=== PATIENT | male | born 1930 | race Caucasian/White ===

== ENCOUNTER 2019-01-12 10:05 | Inpatient (IN) | payer MEDICARE ==
[~2019-01-12] VITALS: Ht 165.1 cm; Wt 83.0 kg
[2019-01-12] MEDS ORDERED: ALBUTEROL FS 2.5 MG/3 ML VIAL.NEB NEB ONE (10:30)
[2019-01-12] MEDS ORDERED: IPRATROPIUM NEB FS 0.5 MG/2.5 ML AMPUL.NEB NEB ONE (10:30)
--- NOTE | 2019-01-12 10:32 | NUR ---
Patient presented to the ER c/o SOB/cough x 1 week. On room air, breathing evenly and unlabored. Connected to the monitor and pulse ox. Kept comfortable, will continue to monitor accordingly.
[2019-01-12] MEDS ORDERED: ALBUTEROL FS 2.5 MG/3 ML VIAL.NEB ONE (10:33)
[2019-01-12] MEDS ORDERED: IPRATROPIUM NEB FS 0.5 MG/2.5 ML AMPUL.NEB ONE (10:33)
[2019-01-12 10:41] LABS: BASOPHILS % (AUTO) 0.3 % (0.0-2.0); HEMATOCRIT 43 % (39-51); HEMOGLOBIN 14.1 g/dL (13.5-17.5); LYMPHOCYTES % (AUTO) 10.9 % (20.0-44.0); MEAN CORPUSCULAR HGB CONC 33 g/dl (31.0-36.0); MEAN CORPUSCULAR VOLUME 90 fL (80-96); MONOCYTES # (AUTO) 0.7 /CMM (0.1-1.30); MONOCYTES % (AUTO) 7.5 % (2.0-12.0); NEUTROPHILS # (AUTO) 7.1 /CMM (1.8-8.9); NEUTROPHILS % (AUTO) 80.3 % (43.0-81.0); PLATELET COUNT (AUTO) 186 /CMM (150-450); RED BLOOD CELL COUNT(AUTO) 4.74 MIL/uL (4.5-6.0); WHITE BLOOD COUNT (AUTO) 8.9 K/uL (4.3-11.0)
[2019-01-12 10:52] LABS: CALCIUM, SERUM 8.7 mg/dL (8.5-10.1); CARBON DIOXIDE 27 mmol/L (21-32); CHLORIDE 109 mmol/L (98-107); CREATININE 1.3 mg/dL (0.6-1.3); GLUCOSE 128 mg/dL (74-106); POTASSIUM 4.1 mmol/L (3.5-5.1); SODIUM SERUM 144 mmol/L (136-145); UREA NITROGEN, BLOOD 16 mg/dL (7-18)
--- NOTE | 2019-01-12 11:43 | NUR ---
CALLED NURSING SUP FOR TELE BED
[2019-01-12] MEDS ORDERED: CEFTRIAXONE 1GM BAG (ER ONLY) 50 ML IV ONE ×2 (11:53→12:00)
--- NOTE | 2019-01-12 11:53 | NUR ---
[id number] TELE DX PNEUMONIA NASIR FISHER NP ACCEPTING
[2019-01-12] MEDS ORDERED: AZITHROMYCIN 500 MG in IV D5W 250 ML IV ONE (12:00)
--- NOTE | 2019-01-12 12:11 | NUR ---
report given to Chapin HELLER for ERICH.
[2019-01-12] MEDS ORDERED: IV NS 0.9% 1,000 ML BAG IV ONE (12:30)
[2019-01-12] MEDS ORDERED: AMLO5TAB9 PO (13:04)
[2019-01-12] MEDS ORDERED: LEVE500T20 PO (13:04)
[2019-01-12] MEDS ORDERED: LISI40TA4 PO (13:04)
--- NOTE | 2019-01-12 13:05 | NUR ---
TECHNICAL SUPPORT ANALYST NOTES PATIENT ARRIVED BY WHEELCHAIR. AMBULATORY. ALERT AND ORIENTED X 3, VERBALLY RESPONSIVE AND RESPONDS TO VERBAL AND TACTILE STIMULI. NO ACUTE DISTRESS NOTED. DENIES ANY PAIN OR DISCOMFORT NOTED. PATIENT ADMITTED TO UNIT UNDER MEDICAL SUPERVISION OF NASIR FISHER NP, AWARE OF PATIENT ARRIVAL. PATIENT ORIENTED TO UNIT, STAFF, PLAN OF CARE AND VERBALIZED UNDERSTANDING. WILL CONTINUE TO MONITOR. BED LOCKED AND IN LOW POSITION. BILATERAL UPPER SIDE RAILS UP AND LOCKED. CALL LIGHT WITHIN EASY REACH
--- NOTE | 2019-01-12 13:08 | NUR ---
patient wheeled via gurney accompanied by emt and RN in no apparent distress noted.
--- NOTE | 2019-01-12 14:15 | NUR ---
WASTE RECLAIMER NOTES PATIENT ON TELEMETRY, ELECTRON MICROSCOPIST IN PLACE. NOTED WITH 4-BEAT VENTRICULAR RUN WITH COUPLETS, RATE OF 80 BPM. NASIR FISHER CLAY TEMPERER PRESENT AT UNIT MADE AWARE, ALSO MADE AWARE OF EKG RESULT FROM ER. WITH NEW ORDER FOR MAGNESIUM LEVEL, NO FURTHER ORDERS AT THIS TIME. ORDER NOTED AND CARRIED OUT. LAB MADE AWARE. WILL CONTINUE TO MONITOR
[2019-01-12] MEDS ORDERED: ONDANSETRON HCL/PF 4 MG/2 ML VIAL IVP PRN (14:30)
[2019-01-12] MEDS ORDERED: IPRATROPIUM NEB FS 0.5 MG/2.5 ML AMPUL.NEB NEB PRN (14:30)
[2019-01-12] MEDS ORDERED: MAGNESIUM HYDROXIDE 30 ML UDC PO PRN (14:30)
[2019-01-12] MEDS ORDERED: ALBUTEROL FS 2.5 MG/0.5 ML VIAL.NEB NEB PRN (14:30)
[2019-01-12] MEDS ORDERED: HYDROCODONE/APAP 5/325MG 1 EACH TABLET PO PRN (14:30)
[2019-01-12] MEDS ORDERED: ZOLPIDEM TARTRATE 5 MG TABLET PO PRN (14:30)
[2019-01-12] MEDS ORDERED: Z GUARD REMEDY 2 OZ OINT TP PRN (14:30)
[2019-01-12] MEDS ORDERED: ACETAMINOPHEN 325 MG TABLET PO PRN (14:30)
[2019-01-12 14:40] LABS: BILIRUBIN,DIRECT 0.1 mg/dL (0.0-0.2); BILIRUBIN,TOTAL 0.4 mg/dL (0.2-1.0)
[2019-01-12] MEDS: ACETYLCYSTEINE 10% SOLN 400 MG/4 ML VIAL NEB SCH ×2 (15:32→22:51)
[2019-01-12] MEDS: IPRATROPIUM NEB FS 0.5 MG/2.5 ML AMPUL.NEB NEB SCH ×3 (15:32→22:51)
[2019-01-12] MEDS: ALBUTEROL FS 2.5 MG/0.5 ML VIAL.NEB NEB SCH ×3 (15:32→22:51)
[2019-01-12] MEDS: methylPREDNISolone SOD SUCC 125 MG/2ML VIAL IV SCH ×2 (15:35→21:45)
[2019-01-12 16:00] VITALS: BP 171/86
--- NOTE | 2019-01-12 18:22 | NUR ---
FRONT END ASSISTANT NOTES PATIENT RESTING INSIDE ROOM. AWAKE, ALERT AND ORIENTED X 3, HARD OF HEARING. NO ACUTE DISTRESS, DENIES ANY PAIN OR DISCOMFORT AT THIS TIME. PATIENT KEPT CLEAN, DRY AND COMFORTABLE. CONTINUE WITH TELEMETRY, MEAT CLERK IN PLACE. SR WITH PVCs 85 BPM. WILL ENDORSE TO INCOMING SHIFT FOR ERICH. BED LOCKED AND IN LOW POSITION. BILATERAL UPPER SIDE RAILS UP AND LOCKED. CALL LIGHT WITHIN EASY REACH
--- NOTE | 2019-01-12 19:30 | NUR ---
TELE/RN RECEIVE PATIENT AWAKE, ALERT, ORIENTED, COMFORTABLE, NO C/O PAIN, NO DISTRESS NOTED, CALL LIGHT IN REACH. FALL RISK PRECAUTIONS PER PROTOCOL. WILL MONITOR.
[2019-01-12] MEDS ORDERED: VANCOMYCIN 1.25 GM in IV D5W 500 ML IV ONE (20:00)
[2019-01-12] MEDS ORDERED: FEE PK DOSING 1 MIN EA MC ONE (20:02)
[2019-01-12 20:05] VITALS: BP 139/90
[2019-01-12] MEDS: ENOXAPARIN SODIUM 40 MG/0.4 ML DISP.SYRIN SQ SCH (21:25)
[2019-01-12] MEDS: LEVETIRACETAM (250 MG) 250 MG TABLET PO SCH (21:46)
[2019-01-13] VITALS (7 sets, daily range): BP systolic 128–159; BP diastolic 68–80
--- NOTE | 2019-01-13 02:24 | NUR ---
TELE/RN PATIENT IS SLEEPING, AROUSABLE, APPEAR COMFORTABLE, NO SIGNS OF DISTRESS NOTED, CALL LIGHT IN REACH. WILL CONTINUE TO MONITOR.
[2019-01-13] MEDS: ALBUTEROL FS 2.5 MG/0.5 ML VIAL.NEB NEB SCH ×4 (02:53→14:45)
[2019-01-13] MEDS: IPRATROPIUM NEB FS 0.5 MG/2.5 ML AMPUL.NEB NEB SCH ×6 (02:53→23:25)
[2019-01-13] MEDS: methylPREDNISolone SOD SUCC 125 MG/2ML VIAL IV SCH ×3 (05:12→21:06)
--- NOTE | 2019-01-13 06:22 | NUR ---
TELE/RN PATIENT IS AWAKE, ALERT, WATCHING TV, NO CHANGE IN CONDITION. ALL NEEDS ATTENDED AT THIS TIME, WILL CONTINUE TO MONITOR.
[2019-01-13 06:33] LABS: BASOPHILS % (AUTO) 0.1 % (0.0-2.0); HEMATOCRIT 40 % (39-51); HEMOGLOBIN 13.7 g/dL (13.5-17.5); LYMPHOCYTES # (AUTO) 0.6 /CMM (0.8-4.8); LYMPHOCYTES % (AUTO) 6.6 % (20.0-44.0); MEAN CORPUSCULAR HGB CONC 34 g/dl (31.0-36.0); MEAN CORPUSCULAR VOLUME 88 fL (80-96); MONOCYTES # (AUTO) 0.3 /CMM (0.1-1.30); MONOCYTES % (AUTO) 2.9 % (2.0-12.0); NEUTROPHILS # (AUTO) 8.1 /CMM (1.8-8.9); NEUTROPHILS % (AUTO) 90.4 % (43.0-81.0); PLATELET COUNT (AUTO) 175 /CMM (150-450); RED BLOOD CELL COUNT(AUTO) 4.57 MIL/uL (4.5-6.0); WHITE BLOOD COUNT (AUTO) 8.9 K/uL (4.3-11.0)
[2019-01-13 06:43] LABS: CHOLESTEROL 94 mg/dL (<200); HDL CHOLESTEROL 29 mg/dL (40-60); LDL 60 mg/dL (0-99); TRIGLYCERIDES 63 mg/dL (30-150)
[2019-01-13 06:50] LABS: CALCIUM, SERUM 8.7 mg/dL (8.5-10.1); CARBON DIOXIDE 24 mmol/L (21-32); CHLORIDE 104 mmol/L (98-107); GLUCOSE 198 mg/dL (74-106); MAGNESIUM 2.1 mg/dL (1.8-2.4); PHOSPHORUS 2.7 mg/dL (2.5-4.9); POTASSIUM 3.7 mmol/L (3.5-5.1); SODIUM SERUM 139 mmol/L (136-145); UREA NITROGEN, BLOOD 11 mg/dL (7-18)
--- NOTE | 2019-01-13 07:42 | NUR ---
SHIRT TURNER OPENING NOTES RECEIVED PT IN BED, AWAKE, A/O X3. TOLERATING RA, WITH NO ACUTE RESPIRATORY DISTRESS NOTED. PT DENIES PAIN AT THIS MOMENT. PT CONCERNED OF WHEN CAN HE BE DISCHARGE. PT STATING HE FELT A LOT BETTER NOW. PT MADE AWARE OF THE HOSPITALIST'S ROUNDS, WILL UPDATE PT FOR THE PLAN WHEN ASSISTANT PROFESSOR OF DRAMA CC COMES AND EVALUATES HIM. ON TELEMONITORING OCCASIONAL PVCS NOTED WITH HR OF 77. PT KEPT HOB ELEVATED. PT KEPT COMFORTABLE. PT'S BED IN LOWEST, LOCKED POSITION WITH SR X 2. CALL LIGHT AND FLUID KEPT WITHIN REACH. WILL CONTINUE PLAN OF CARE.
[2019-01-13] MEDS: ACETYLCYSTEINE 10% SOLN 400 MG/4 ML VIAL NEB SCH ×3 (08:06→23:25)
[2019-01-13] MEDS: LISINOPRIL (20MG) 20 MG TABLET PO SCH (09:04)
[2019-01-13] MEDS: AMLODIPINE BESYLATE 5 MG TABLET PO SCH (09:04)
[2019-01-13] MEDS: LEVETIRACETAM (250 MG) 250 MG TABLET PO SCH ×2 (09:04→21:07)
--- NOTE | 2019-01-13 09:59 | NUR ---
WOUND CARE CONSULT: PT PRESENTS WITH REDNESS AND SWELLING TO LEFT LOWER LEG, PRESENT ON ADMISSION. PT IS INCONTINENT. RECOMMENDATIONS MADE FOR SKIN PROTECTION. DISCUSSED WITH NURSING STAFF. WILL SEE PRN. LUNA IN AGREEMENT WITH PLAN OF CARE. CURRENT BRIE SCORE IS 19. Addendum: 01/13/19 at 1001 by LISA FRYE WNDNU Amended: Links added.
[2019-01-13] MEDS: CEFTRIAXONE 1 G in IV D5W 50 ML IV SCH (11:55)
[2019-01-13] MEDS: AZITHROMYCIN 250 MG TABLET PO SCH (11:56)
[2019-01-13] MEDS: VANCOMYCIN 1 GM in IV D5W 250 ML IV SCH (13:04)
--- NOTE | 2019-01-13 13:15 | NUR ---
RN NOTES PT HAD STAT EKG, RESULTED SINUS TACH WITH FREQUENT PVCS WITH HR 108. VS 147/75, 98.3, 20 AND 96% AT ROOM AIR. BUSINESS INTELLIGENCE ETL DEVELOPER CC MADE AWARE. WILL CONTINUE TO MONITOR.
[2019-01-13] MEDS ORDERED: METOPROLOL TARTRATE INJ 5 MG/5 ML AMPUL IVP ONE (17:00)
[2019-01-13] MEDS ORDERED: LEVALBUTEROL HCL NEB 1.25 MG/0.5 ML VIAL.NEB NEB PRN (17:00)
[2019-01-13] MEDS: LACTOBACILLUS RHAMNOSUS GG 1 EACH CAP.SPRINK PO SCH (17:20)
[2019-01-13] MEDS: METOPROLOL TARTRATE 50 MG TABLET PO SCH ×2 (17:20→23:16)
--- NOTE | 2019-01-13 18:34 | NUR ---
SIZING END BANDER CLOSING NOTES RECEIVED PT IN BED, AWAKE, A/O X3. TOLERATING RA, WITH NO ACUTE RESPIRATORY DISTRESS NOTED. PT DENIES PAIN AT THIS MOMENT. ON TELEMONITORING SINUS TACH WITH FREQUENT PVCS NOTED WITH HR OF 110. PIV TO RIGHT HAND G20, FLUSHED WITH NS INTACT AND OPERATIONAL. PT KEPT HOB ELEVATED. ALL NEEDS AND CARE PROVIDED.PT KEPT COMFORTABLE. PT'S BED IN LOWEST, LOCKED POSITION WITH SR X 2. CALL LIGHT AND FLUID KEPT WITHIN REACH. WILL ENDORSE PLAN OF CARE TO INCOMING NIGHT NURSE AND CN.
--- NOTE | 2019-01-13 19:50 | NUR ---
TELE/RN RECEIVE PATIENT AWAKE, ALERT, ORIENTED, COMFORTABLE, NO C/O PAIN, NO DISTRESS NOTED, CALL LIGHT IN REACH. FALL PRECAUTIONS PER PROTOCOL IN PLACE, WILL MONITOR.
[2019-01-13] MEDS: ENOXAPARIN SODIUM 40 MG/0.4 ML DISP.SYRIN SQ SCH (21:08)
[2019-01-14] VITALS: BP 155/96
[2019-01-14] MEDS: IPRATROPIUM NEB FS 0.5 MG/2.5 ML AMPUL.NEB NEB SCH ×6 (03:47→23:09)
[2019-01-14 04:00] VITALS: BP 147/89
[2019-01-14] MEDS: METOPROLOL TARTRATE 50 MG TABLET PO SCH ×2 (05:36→09:18)
[2019-01-14] MEDS: methylPREDNISolone SOD SUCC 125 MG/2ML VIAL IV SCH ×3 (05:36→20:41)
--- NOTE | 2019-01-14 06:55 | NUR ---
TELE/RN PATIENT IS SLEEPING AT THIS TIME, EASILY AROUSABLE, APPEAR COMFORTABLE, NO SIGNS OF DISTRESS NOTED, CALL LIGHT IN REACH. ALL NEEDS ATTENDED AT THIS TIME,WILL CONTINUE TO MONITOR.
[2019-01-14 07:01] LABS: BASOPHILS % (AUTO) 0.1 % (0.0-2.0); HEMATOCRIT 41 % (39-51); HEMOGLOBIN 13.9 g/dL (13.5-17.5); LYMPHOCYTES % (AUTO) 6.5 % (20.0-44.0); MEAN CORPUSCULAR HGB CONC 34 g/dl (31.0-36.0); MEAN CORPUSCULAR VOLUME 89 fL (80-96); MONOCYTES # (AUTO) 0.7 /CMM (0.1-1.30); MONOCYTES % (AUTO) 4.7 % (2.0-12.0); NEUTROPHILS # (AUTO) 14.1 /CMM (1.8-8.9); NEUTROPHILS % (AUTO) 88.7 % (43.0-81.0); PLATELET COUNT (AUTO) 217 /CMM (150-450); RED BLOOD CELL COUNT(AUTO) 4.66 MIL/uL (4.5-6.0); WHITE BLOOD COUNT (AUTO) 15.9 K/uL (4.3-11.0)
[2019-01-14 07:20] LABS: CALCIUM, SERUM 9.6 mg/dL (8.5-10.1); CARBON DIOXIDE 28 mmol/L (21-32); CHLORIDE 103 mmol/L (98-107); GLUCOSE 131 mg/dL (74-106); MAGNESIUM 2.2 mg/dL (1.8-2.4); POTASSIUM 4.4 mmol/L (3.5-5.1); SODIUM SERUM 139 mmol/L (136-145); UREA NITROGEN, BLOOD 21 mg/dL (7-18)
[2019-01-14] MEDS: ACETYLCYSTEINE 10% SOLN 400 MG/4 ML VIAL NEB SCH ×3 (07:25→23:08)
--- NOTE | 2019-01-14 07:30 | NUR ---
received pt. alert and oriented x3,but very forgetful.cont. checking on pt. as seems to need reassurance.
[2019-01-14 08:00] VITALS: BP 158/98
[2019-01-14] MEDS: AMLODIPINE BESYLATE 5 MG TABLET PO SCH (09:17)
[2019-01-14] MEDS: LEVETIRACETAM (250 MG) 250 MG TABLET PO SCH ×2 (09:17→20:41)
[2019-01-14] MEDS: LISINOPRIL (20MG) 20 MG TABLET PO SCH (09:18)
[2019-01-14] MEDS: LACTOBACILLUS RHAMNOSUS GG 1 EACH CAP.SPRINK PO SCH ×2 (09:18→19:10)
[2019-01-14 10:01] LABS: THYROID STIMULATING HORMONE 0.38 uIU/mL (0.358-3.74)
[2019-01-14 10:25] VITALS: BP 177/74
[2019-01-14] MEDS: AMIODARONE HCL 200 MG TABLET PO SCH ×3 (10:27→19:10)
[2019-01-14] MEDS: CEFTRIAXONE 1 G in IV D5W 50 ML IV SCH (12:19)
[2019-01-14] MEDS: AZITHROMYCIN 250 MG TABLET PO SCH (12:20)
[2019-01-14] MEDS: VANCOMYCIN 1 GM in IV D5W 250 ML IV SCH (13:08)
[2019-01-14 16:00] VITALS: BP 144/87
--- NOTE | 2019-01-14 16:35 | NUR ---
iv site rt. hand leaking-removed and new iv start lt. wrist #22 angio,tolerated well.
--- NOTE | 2019-01-14 16:36 | NUR ---
attemting to get oob freq.reoeiented.bed alarm on.
--- NOTE | 2019-01-14 19:15 | NUR ---
FOOD SERVICE DRIVER NOTES RECEIVED PT IN BED AWAKE AND ABLE TO MAKE NEEDS KNOWN. PT A/O X3. PT ON RA AND TOLERATING WELL. BREATHING EVEN AND UNLABORED WITH NO S/S OF ACUTE DISTRESS OR SOB NOTED. PT DENIES PAIN AT THIS TIME. PT ON TELEMONITORING WITH SINUS RHYTHM WITH FREQUENT PVCS AND BBB NOTED WITH HR OF 68. PT WITH IV ON LEFT WRIST #20G SL, PATENT AND INTACT. SAFETY MEASURES IN PLACE WITH BED IN LOWEST LOCKED POSITION WITH SIDE RAILS UP X2. CALL LIGHT WITHIN REACH. WILL CONTINUE TO MONITOR.
[2019-01-14 20:00] VITALS: BP 134/70
[2019-01-14] MEDS: ENOXAPARIN SODIUM 40 MG/0.4 ML DISP.SYRIN SQ SCH (20:43)
[2019-01-15] VITALS: BP 166/95
[2019-01-15] MEDS: IPRATROPIUM NEB FS 0.5 MG/2.5 ML AMPUL.NEB NEB SCH ×6 (02:50→23:26)
[2019-01-15] MEDS: methylPREDNISolone SOD SUCC 125 MG/2ML VIAL IV SCH (06:00)
--- NOTE | 2019-01-15 06:40 | NUR ---
JOURNEYMAN CARPENTER NOTES PT IN BED SLEEPING BUT EASILY AWOKEN VERBALLY OR BY TOUCH. PT A/O X3. PT ON RA AND TOLERATING WELL. BREATHING EVEN AND UNLABORED WITH NO S/S OF ACUTE DISTRESS OR SOB NOTED THROUGHOUT SHIFT. PT DENIES PAIN AT THIS TIME. PT ON TELEMONITORING WITH SINUS RHYTHM WITH FREQUENT PVCS AND BBB NOTED WITH HR OF 61. PT KEPT CLEAN, DRY, AND COMFORTABLE. PT WITH IV ON LEFT WRIST #20G SL, PATENT AND INTACT. SAFETY MEASURES IN PLACE WITH BED IN LOWEST LOCKED POSITION WITH SIDE RAILS UP X2. CALL LIGHT WITHIN REACH. WILL ENDORSE TO ONCOMING NURSE FOR ERICH.
[2019-01-15 07:17] LABS: CALCIUM, SERUM 9.4 mg/dL (8.5-10.1); CARBON DIOXIDE 25 mmol/L (21-32); CHLORIDE 104 mmol/L (98-107); GLUCOSE 133 mg/dL (74-106); POTASSIUM 4.3 mmol/L (3.5-5.1); SODIUM SERUM 138 mmol/L (136-145); UREA NITROGEN, BLOOD 30 mg/dL (7-18)
--- NOTE | 2019-01-15 07:20 | NUR ---
QUEEN'S COUNSEL OPENING NOTE RECEIVED PATIENT IN BED. ALERT ORIENTED X3, ZUNI. ON ROOM AIR, TOLERATING WELL. IN NO APPARENT DISTRESS OR DISCOMFORT AT THIS TIME. RESPIRATIONS EVEN AND UNLABORED. DENIES PAIN AND SOB. ON TELE MONITOR WITH SR AND PVCS, HR OF 60. LEFT WRIST 22G IVC SL, PATENT AND INTACT. PATIENT KEPT CLEAN AND COMFORTABLE, SAFETY MEASURES IN PLACE, BED IN LOW LOCKED POSITION, SIDE RAILS UP X2, ALARM ON, CALL LIGHT WITHIN EASY REACH. WILL CONTINUE TO MONITOR.
[2019-01-15] MEDS: ACETYLCYSTEINE 10% SOLN 400 MG/4 ML VIAL NEB SCH ×3 (07:48→23:26)
[2019-01-15 08:00] VITALS: BP 159/89
[2019-01-15] MEDS: AMLODIPINE BESYLATE 5 MG TABLET PO SCH (08:29)
[2019-01-15] MEDS: LACTOBACILLUS RHAMNOSUS GG 1 EACH CAP.SPRINK PO SCH ×2 (08:29→17:30)
[2019-01-15] MEDS: AMIODARONE HCL 200 MG TABLET PO SCH ×3 (08:29→17:31)
[2019-01-15] MEDS: LISINOPRIL (20MG) 20 MG TABLET PO SCH (08:30)
[2019-01-15] MEDS: LEVETIRACETAM (250 MG) 250 MG TABLET PO SCH ×2 (08:33→21:05)
[2019-01-15 09:00] VITALS: BP 159/89
[2019-01-15] MEDS: methylPREDNISolone SOD SUCC 40 MG/ML VIAL IV SCH ×2 (12:14→21:05)
[2019-01-15] MEDS: CEFTRIAXONE 1 G in IV D5W 50 ML IV SCH (12:18)
[2019-01-15] MEDS: AZITHROMYCIN 250 MG TABLET PO SCH (12:18)
[2019-01-15] MEDS: VANCOMYCIN 1 GM in IV D5W 250 ML IV SCH (13:39)
[2019-01-15 16:00] VITALS: BP 156/92
--- NOTE | 2019-01-15 19:20 | NUR ---
MS RN CLOSING NOTE PATIENT IN BED. ALERT ORIENTED X3, EGEGIK. ON ROOM AIR, TOLERATING WELL. IN NO APPARENT DISTRESS OR DISCOMFORT AT THIS TIME. RESPIRATIONS EVEN AND UNLABORED. DENIES PAIN AND SOB. ABLE TO COMMUNICATE NEEDS. LEFT WRIST 22G IVC SL, PATENT AND INTACT. PATIENT KEPT CLEAN AND COMFORTABLE, ALL NEEDS ATTENDED, ORDERS RENDERED. SAFETY MEASURES IN PLACE, BED IN LOW LOCKED POSITION, SIDE RAILS UP X2, ALARM ON, CALL LIGHT WITHIN EASY REACH. SEIZURE PRECAUTIONS OBSERVED, WILL ENDORSE TO PM NURSE FOR ERICH.
--- NOTE | 2019-01-15 19:25 | NUR ---
RN INITIAL NOTES: RECEIVED REPORT FROM JUSTIN HELLER. PT IN BED, AWAKE, A/O X3 ON RA RESPIRATION EVEN AND UNLABORED. PT HARD OF HEARING. DISCUSSED PLAN OF CARE TO PT AT THIS TIME, AGREE. BLE OFFLOADED ON PILLOWS. IV ACCESS PATENT AND FLUSHING WELL, ON HL. DENIES ANY PAIN OR DISCOMFORT AT THIS TIME. SAFETY PRECAUTIONS FOR FALL INITIATED, URINAL AND CALL LIGHT IN REACH, WILL CONTINUE MONITORING PT.
[2019-01-15 20:00] VITALS: BP 147/84
[2019-01-15] MEDS: ENOXAPARIN SODIUM 40 MG/0.4 ML DISP.SYRIN SQ SCH (21:06)
[2019-01-16] MEDS: IPRATROPIUM NEB FS 0.5 MG/2.5 ML AMPUL.NEB NEB SCH ×6 (04:06→19:30)
--- NOTE | 2019-01-16 06:56 | NUR ---
RN CLOSING NOTES; PT REMAINS A/O X3, DENIES ANY SOB, APPEARS CALM AND COMFORTABLE, DENIES ANY PAIN OR DISCOMFORT. IV ACCESS REMAINS PATENT AND FLUSHING WELL, ON HL. BLE KEPT OFFLOADED ON PILLOWS. URINAL WITHIN REACH,. WAITING FOR PLACEMENT. VS REMAINS STABLE, NEEDS ATTENDED. SAFETY PRECAUTIONS FOR FALL REMAINS ENGAGED, CALL LIGHT IN REACH, WILL ENDORSE TO DAY RN FOR CONTINUITY OF CARE.
[2019-01-16] MEDS: ACETYLCYSTEINE 10% SOLN 400 MG/4 ML VIAL NEB SCH ×2 (07:31→15:37)
[2019-01-16 07:44] LABS: CALCIUM, SERUM 9.4 mg/dL (8.5-10.1); CARBON DIOXIDE 25 mmol/L (21-32); CHLORIDE 103 mmol/L (98-107); GLUCOSE 129 mg/dL (74-106); MAGNESIUM 2.4 mg/dL (1.8-2.4); PHOSPHORUS 3.4 mg/dL (2.5-4.9); POTASSIUM 4.5 mmol/L (3.5-5.1); SODIUM SERUM 138 mmol/L (136-145); UREA NITROGEN, BLOOD 30 mg/dL (7-18)
[2019-01-16 07:52] LABS: BASOPHILS % (AUTO) 0.1 % (0.0-2.0); HEMATOCRIT 44 % (39-51); HEMOGLOBIN 14.8 g/dL (13.5-17.5); LYMPHOCYTES % (AUTO) 6.3 % (20.0-44.0); MEAN CORPUSCULAR HGB CONC 34 g/dl (31.0-36.0); MEAN CORPUSCULAR VOLUME 88 fL (80-96); MONOCYTES # (AUTO) 0.9 /CMM (0.1-1.30); MONOCYTES % (AUTO) 5.5 % (2.0-12.0); NEUTROPHILS # (AUTO) 14.4 /CMM (1.8-8.9); NEUTROPHILS % (AUTO) 88.1 % (43.0-81.0); PLATELET COUNT (AUTO) 263 /CMM (150-450); RED BLOOD CELL COUNT(AUTO) 4.95 MIL/uL (4.5-6.0); WHITE BLOOD COUNT (AUTO) 16.3 K/uL (4.3-11.0)
[2019-01-16 08:00] VITALS: BP 169/93
--- NOTE | 2019-01-16 08:00 | NUR ---
RN NOTES RECEIVED PATIENT IN THE ROOM A/O X2/3, STABLE NO ACUTE RESPIRATORY DISTRESS. PATIENT HAS A [place], REFUSED PAIN AT THIS TIME. V/S TAKEN AND FOLLOW ED , ADMINISTERED HYPERTENSION MEDICATION , AND OTHER SCHEDULED MEDICATION. CALL LIGHT WITHIN TO REACH. PATIENT TURN AND REPOSTION SELF IN THE BED, CALL LIGHT WITHIN TO REACH, USING URINAL. SAFETY PRECAUTION MAINTAINED ALL THE TIME.
[2019-01-16] MEDS: methylPREDNISolone SOD SUCC 40 MG/ML VIAL IV SCH (08:32)
[2019-01-16] MEDS: LEVETIRACETAM (250 MG) 250 MG TABLET PO SCH ×2 (08:33→20:16)
[2019-01-16] MEDS: AMLODIPINE BESYLATE 5 MG TABLET PO SCH (08:33)
[2019-01-16] MEDS: AMIODARONE HCL 200 MG TABLET PO SCH ×3 (08:33→16:17)
[2019-01-16] MEDS: LACTOBACILLUS RHAMNOSUS GG 1 EACH CAP.SPRINK PO SCH ×2 (08:34→16:17)
[2019-01-16] MEDS: LISINOPRIL (20MG) 20 MG TABLET PO SCH (08:34)
--- NOTE | 2019-01-16 12:00 | NUR ---
RN NOTES PATIENT STABLE GOING TO D/C SNF. INFUSING ANTIBIOTIC AT THIS TIME 100 ML/HR ON LEFT WRIST INTACT. CONTINUED MONITORING.
[2019-01-16] MEDS: CEFTRIAXONE 1 G in IV D5W 50 ML IV SCH (12:01)
[2019-01-16] MEDS: AZITHROMYCIN 250 MG TABLET PO SCH (12:06)
[2019-01-16] MEDS: VANCOMYCIN 1 GM in IV D5W 250 ML IV SCH (12:54)
[2019-01-16] MEDS ORDERED: AMIO200T7 PO (12:55)
[2019-01-16] MEDS ORDERED: PRED20TA PO (12:55)
[2019-01-16] MEDS ORDERED: FLUT1DIS3 INH (12:57)
[2019-01-16] MEDS ORDERED: LEVO500T75 PO (12:57)
[2019-01-16 16:00] VITALS: BP 153/81
--- NOTE | 2019-01-16 17:00 | NUR ---
RN NOTES PATIENT STABLE ADMINISTERED SCHEDULED MEDICATION, CALLED AND GIVE A REPORT ON SNF NAME RENATE HELLER
--- NOTE | 2019-01-16 18:00 | NUR ---
RN NOTES PATIENT STABLE WAITING AMBULANCE TO STRUCTURAL ENGINEERING TECHNICIAN. BELONGING WITH THE PATIENT,PATIENT SITTING IN THE HALLWAY WAITING FOR AMBULANCE.
--- NOTE | 2019-01-16 19:00 | NUR ---
RN NOTES PATIENT UPSET BECAUSE OF AMBULANCE LATE, V/S TAKE BY AMT BP 168/101, P-93. REFUSED TO TRANSPORT PATIENT, CHARGE NURSE AWARE OF. ENDORSED ONCOMING NURSE FOR FOLLOW UP.
[2019-01-16 19:05] VITALS: BP 168/101
[2019-01-16] MEDS ORDERED: CLONIDINE HCL 0.1 MG TABLET PO SCH (19:55)
--- NOTE | 2019-01-16 20:21 | NUR ---
BP HIGH, TRANSFER DELAYED. 1944 [address] HUSAIN EARTH SCIENCE TEACHER CALLED AND NEW ORDER RECIEVED FOR CLONIDINE 0.1 MG X1 DOSE FOR BP 168/101, HR OF 98 AND AMBULANCE REHAB REFUSING TO TAKE PATIENT. 2004 CLONIDINE ADMINISTERERD ORDERED WILL REEVALUATE BP PATIENT SITTING IN CHAIR IN HALLWAY WITH CALM DEMEANOR IN NO APPARENT DISTRESS.
[2019-01-16 20:30] VITALS: BP 145/82
--- NOTE | 2019-01-16 20:30 | NUR ---
transfer reinitiated bp is now 145/82 hr 64. patient still sitting in chair sitting in hallway fully clothed with Stacia triage registered nurse. Ambulance rescheduled for transfer won't arrive till 2144 eta.
--- NOTE | 2019-01-16 20:45 | NUR ---
snf called informed new pickup, med rec request. spoke with navya of [facility] and informed of new pickup time and patients new bp of 145/82 and hr of 64. says she will be making sure with her nursing supervisor inspection and testing that it is ok to transfer because it will be late. [id number] glen called and requested med rec to be faxed to rehab to prepare for transfer. [phone] fax sent of discharge med rec sent
[2019-01-16 21:55] VITALS: BP 155/88
--- NOTE | 2019-01-16 21:55 | NUR ---
amb arrived pt transferred Tw[facility] emt given report. bp checked andn is 155/88 hr of 62. patient placed on [facility] escorted off unit and taken off unit en route to [facility] with belongings. in no apparent distress.
[2019-01-17] MEDS ORDERED: predniSONE 20 MG TABLET PO SCH (09:00)
== END 2019-01-16 21:50 | DRG 177 ==
LOC: ER 10:12 → TELE 12:44 → MED 01-15 09:04
PROVIDERS: ADMIT Nurse Practitioner Acute Care
DX: J69.0 Pneumonitis due to inhalation of food and vomit (principal); J96.01 Acute respiratory failure with hypoxia; I50.33 Acute on chronic diastolic (congestive) heart failure; L03.116 Cellulitis of left lower limb; D68.59 Other primary thrombophilia; E87.2 Acidosis; I48.92 Unspecified atrial flutter; I47.1 Supraventricular tachycardia; I11.0 Hypertensive heart disease with heart failure; G40.909 Epilepsy, unspecified, not intractable, without status epilepticus; N40.0 Benign prostatic hyperplasia without lower urinary tract symptoms; E66.9 Obesity, unspecified; Z68.30 Body mass index [BMI] 30.0-30.9, adult; R73.9 Hyperglycemia, unspecified; E78.5 Hyperlipidemia, unspecified; I48.0 Paroxysmal atrial fibrillation; F03.90 Unspecified dementia, unspecified severity, without behavioral disturbance, psychotic disturbance, mood disturbance, and anxiety; I87.8 Other specified disorders of veins
CPT/HCPCS: 36415; 71045-TC; 80048-TC; 80061-TC; 80202-TC; 82247-TC; 82248-TC; 83605-TC; 83735-TC; 84100-TC; 84439-TC; 84443-TC; 84484-TC; 85025-TC; 87040-TC; 87081-TC; 87400; 92526; 92611-TC; 93307-TC; 93970-TC; 94799-TC; 97116-TC; 97530-TC; G0378; J0456; J0696; J1650; J2920; J2930; J3370; J3490; J7030; J7050; J7060